=== PATIENT | male | born 1955 | race African-American/Black ===

== ENCOUNTER 2017-04-26 10:15 | Emergency (ER) | payer MEDICAID, OTHER ==
[~2017-04-26] VITALS: Ht 175.3 cm; Wt 98.4 kg
[~2017-04-26 10:15] MED LIST: ANUSOL-HC25 MG RECTAL; ATARAX25 MG ORAL; BENADRYL50 MG ORAL; CILOXAN 0.3% O1 DROP LEFT EYE; DOCUSATE SODIU100 MG PO; HYDROCORTISONE28 G5 TP; IBUPROFEN600 MG ORAL; IBUPROFEN800 MG ORAL; KEFLEX500 MG ORAL; LISINOPRIL10 MG ORAL; LISINOPRIL5 MG ORAL; NORCO 10/3251 EA ORAL; NORCO 5-325 TA1 EACH ORAL; NORVASC10 MG PO; SIMVASTATIN20 MG ORAL; SOMA350 MG PO; TAMSULOSIN HCL0.4 MG ORAL; TUMS500 MG PO; VICODIN ES 7.51 EACH ORAL; VITAMIN D1000 UNI1 ORAL
[2017-04-26 10:44] VITALS: BP 151/96
[2017-04-26] MEDS ORDERED: Ketorolac 30mg Inj IM ONE (11:00)
--- NOTE | 2017-04-26 11:53 | Diagnostic Imaging Report ---
Indication: Pain right ankle Comparison: None Findings: 3 views of the right ankle obtained. No acute fracture, malalignment, periostitis, or osteochondral defects are identified. Soft tissues are unremarkable. Mild marginal spurs are noted at the anterior aspect of the tibiotalar joint. There is a hint of calcification of the entire aponeurosis at the calcaneal tuberosity. Impression: No acute injury
[2017-04-26 12:25] VITALS: BP 151/96
--- NOTE | 2017-04-30 07:03 | Emergency Room Report ---
History of Present Illness General Chief Complaint: Pain Source: Patient Present Illness HPI 62-year-old male presents ED complaining of back pain and right ankle pain. Patient states that he has chronic history of back pain has had back surgery in the past. Patient is here complaining of back pain and right ankle pain. Notes pain for last several days. Patient is unsure if he injured his ankle in any way. Pain is a 10 out of 10, throbbing, nonradiating. Worse with walking but is able to bear weight. No other aggravating relieving factors. Denies any other associated symptom Allergies: Coded Allergies: No Known Allergies (Unverified , 11/03/15) Patient History Past Medical History: other - chronic back pain Past Surgical History: other - back surgery Pertinent Family History: none Social History: Denies: smoking, alcohol use, drug use Immunizations: UTD Reviewed Nursing Documentation: PMH: Agreed, PSxH: Agreed Nursing Documentation-PMH Past Medical History: No History, Except For Hx Hypertension: Yes - CHRONIC BACK PAIN, BACK SX 2006 Review of Systems All Other Systems: negative except mentioned in HPI Physical Exam Vital Signs Date Time Temp Pulse Resp B/P (MAP) Pulse Ox O2 Delivery O2 Flow Rate FiO2 04/26/17 10:36 97.9 66 20 151/96 98 Room Air Sp02 EP Interpretation: reviewed, normal General Appearance: no apparent distress, alert, GCS 15, non-toxic Head: normocephalic Eyes: bilateral eye normal inspection, bilateral eye PERRL ENT: normal ENT inspection Neck: normal inspection Respiratory: normal inspection Cardiovascular #1: normal inspection Gastrointestinal: normal inspection Rectal: deferred Genitourinary: no CVA tenderness, no vertebral tenderness Musculoskeletal: other - paraspinal lumbar tenderness, tender - R ankle Neurologic: alert, oriented x3, responsive, motor strength/tone normal, sensory intact, speech normal Psychiatric: normal inspection Skin: normal inspection Lymphatic: normal inspection Procedures Splinting Splinting : Consent: Verbal Pre-Made Type: TRES wrap - R ankle Pre-Proc Neuro Vasc Exam: normal Post-Proc Neuro Vasc Exam: normal Patient Tolerated: Well Complications: None Medical Decision Making Diagnostic Impression: Primary Impression: Ankle sprain Qualified Codes: S93.401A - Sprain of unspecified ligament of right ankle, initial encounter Additional Impression: Opioid dependence Qualified Codes: F11.20 - Opioid dependence, uncomplicated ER Course Hospital Course 62-year-old M presents to ED complaining of R ankle pain. c/o back pain Differential diagnoses include: Fracture, dislocation, sprain, contusion Clinical course Patient placed on stretcher. After initial history and physical, I ordered Xrays of R ankle Xrays prelim read shows no acute fracture/dislocation. placed in tres wrap, given crutches i reviewed CURES; patient recieves extensive narcotic prescriptions on a monthly basis. patient had 90 pills filled a few days ago. Patient acknowledges receiving his medications. I explained to patient that I cannot provide him with any medication stronger or additional medication at this time. Patient displays understanding Diagnosis - ankle sprain, opioid dependence Stable and discharged to home. apply ice, keep elevated. weight bear as tolerated. Followup with PMD. Return to ED if symptoms recur or worsen Other X-Ray Diagnostic Results Other X-Ray Diagnostic Results : X-Ray ordered: R ankle # of Views/Limited Vs Complete: 3 View Indication: Pain EP Interpretation: Yes Interpretation: no dislocation, no soft tissue swelling, no fractures Impression: No acute disease Interpreting ER Provider: Electronically signed by Amari Huston MD Last Vital Signs Date Time Temp Pulse Resp B/P (MAP) Pulse Ox O2 Delivery O2 Flow Rate FiO2 04/26/17 12:25 97.9 20 151/96 98 Room Air 04/26/17 10:36 66 Status: improved Disposition: HOME, SELF-CARE Condition: Stable Patient Instructions: Ankle Sprain, [id number] AMARI HUSTON M.D. Apr 30, 2017 07:03
== END 2017-04-26 12:27 | disposition home or self-care (01) ==
LOC: EMR 10:53
DX: S93.401A Sprain of unspecified ligament of right ankle, initial encounter (principal); F11.20 Opioid dependence, uncomplicated; M54.9 Dorsalgia, unspecified; X58.XXXA Exposure to other specified factors, initial encounter; Y93.9 Activity, unspecified; Y92.9 Unspecified place or not applicable; I10 Essential (primary) hypertension
CPT/HCPCS: 29540; 73610; 96372; 99283; J1885

== ENCOUNTER 2017-06-01 08:17 | Emergency (ER) | payer MEDICAID ==
[~2017-06-01] VITALS: Ht 175.3 cm; Wt 96.2 kg
[2017-06-01 08:25] VITALS: BP 158/92
[2017-06-01] MEDS ORDERED: Ketorolac 60mg Inj IM ONE (09:00)
[2017-06-01] MEDS ORDERED: Methocarbamol 750mg tab ORAL ONE (09:00)
--- NOTE | 2017-06-01 09:16 | Emergency Room Report ---
History of Present Illness General Chief Complaint: Pain Source: Patient Present Illness HPI Patient present with complaints of exacerbation and flareup of his low back pain Patient reports radiation towards the buttock area in the lower leg mainly on the right side however some also on the left side Denies any acute fall or injury patient reports spraining his right ankle about one month ago Denies any chest pressures of breath denies any saddle paresthesia Patient reports increased pain compared to previous 01/09 Denies any difficulty using the restroom Allergies: Coded Allergies: No Known Allergies (Unverified , 11/03/15) Patient History Past Medical History: see triage record Pertinent Family History: none Reviewed Nursing Documentation: PMH: Agreed, PSxH: Agreed Nursing Documentation-PMH Past Medical History: No History, Except For Hx Hypertension: Yes - CHRONIC BACK PAIN, BACK SX 2005 Hx Asthma: No Hx COPD: No Hx Diabetes: No Hx Cancer: No Hx Gastrointestinal Problems: No Hx Dialysis: No History Of Psychiatric Problem: No Hx Neurological Problems: Yes - HYDROCELE Hx Cerebrovascular Accident: No Hx Seizures: No Review of Systems All Other Systems: negative except mentioned in HPI Physical Exam Vital Signs Date Time Temp Pulse Resp B/P (MAP) Pulse Ox O2 Delivery O2 Flow Rate FiO2 06/01/17 08:21 97.2 62 18 158/92 99 Room Air Sp02 EP Interpretation: reviewed, normal General Appearance: well appearing, no apparent distress Head: normocephalic, atraumatic Eyes: bilateral eye PERRL, bilateral eye EOMI ENT: hearing grossly normal, normal pharynx, TMs + canals normal, uvula midline Neck: full range of motion, supple, no meningismus, no bony tend Respiratory: lungs clear, normal breath sounds, no rhonchi, no respiratory distress, no retraction, no accessory muscle use Cardiovascular #1: normal peripheral pulses, regular rate, rhythm, no edema, no gallop, no JVD, no murmur Gastrointestinal: normal bowel sounds, non tender, soft, no mass, no organomegaly, non-distended, no guarding, no hernia, no pulsatile mass, no rebound Genitourinary: no CVA tenderness Musculoskeletal: other - Patient has a back brace in place, he is ambulating without any focal deficit he does however use a cane for assistance sensory is intact, , Neurologic: oriented x3, responsive, senior product manager III-XII nml as tested, sensory intact Psychiatric: mood/affect normal Skin: normal color, no rash, warm/dry, palpation normal Lymphatic: normal inspection, no adenopathy Medical Decision Making Diagnostic Impression: Primary Impression: back pain ER Course Patient presents with multiple paperwork showing previous denial of further intervention, now the patient has had positive response for lower back epidural injections and was given a referral in the next 6 days Patient has extensive previous workup He is essentially requesting assistance with a flareup of the discomfort Patient also requesting pain medication and muscle relaxants for home He was notified that he appears to be under appropriate management Patient had recent medications dispensed And secondary to the safe pain medicine prescribing campaign patient is encouraged to followup with primary pain management Last Vital Signs Date Time Temp Pulse Resp B/P (MAP) Pulse Ox O2 Delivery O2 Flow Rate FiO2 06/01/17 08:25 97.2 18 158/92 99 Room Air 06/01/17 08:21 62 Status: improved Disposition: HOME, SELF-CARE Condition: Improved Referrals: NOT CHOSEN IPA/MD,REFERRING (PCP) Patient Instructions: Back Pain, Adult Additional Instructions: Patient is provided with the discharge instructions notified to follow up with primary doctor in the next 2-3 days otherwise return to the er with any worsening symptoms. Please note that this report is being documented using [employer] technology. This can lead to erroneous entry secondary to incorrect interpretation by the dictating instrument. CARYN GUSTAFSON D.O. Jun 01, 2017 09:16
[2017-06-01 09:22] VITALS: BP 158/92
== END 2017-06-01 09:22 | disposition home or self-care (01) ==
LOC: EMR 08:49
DX: I10 Essential (primary) hypertension (principal); G89.29 Other chronic pain; M54.9 Dorsalgia, unspecified; Z86.69 Personal history of other diseases of the nervous system and sense organs; N43.3 Hydrocele, unspecified
CPT/HCPCS: 96372; 99284

== ENCOUNTER 2017-10-29 10:37 | Emergency (ER) | payer MEDICAID ==
[~2017-10-29] VITALS: Ht 175.3 cm; Wt 96.2 kg
[2017-10-29 10:50] VITALS: BP 160/92
[2017-10-29] MEDS ORDERED: NASAL SPRAY SIN30 ML NS (11:05)
[2017-10-29] MEDS ORDERED: TESSALON PERLE100 MG ORAL (11:05)
[2017-10-29 11:18] VITALS: BP 148/90
--- NOTE | 2017-10-29 12:02 | Diagnostic Imaging Report ---
Indication: Cough Comparison: 11/13/2008 A single view chest radiograph was obtained. Findings: There is mild bronchial wall thickening noted. There is no consolidation or infiltrate. Cardiomediastinal appearance is within normal limits for age. Pulmonary vascularity is appropriate. The diaphragmatic contour is smooth and costophrenic angles are sharp. No pleural effusions are identified. The bones are unremarkable. Impression: Suspect bronchitis.
--- NOTE | 2017-10-29 12:22 | Emergency Room Report ---
History of Present Illness General Chief Complaint: Upper Respiratory Illness Source: Patient Present Illness HPI 62-year-old male, cough, runny nose for 5 days. Cough is productive with clear phlegm. Pt still eating/drinking well. +sick contacts. No recent travel. No SOB , cp, abdominal pain, n/v/d. Allergies: Coded Allergies: No Known Allergies (Unverified , 11/03/15) Patient History Past Medical History: see triage record Past Surgical History: none Pertinent Family History: none Reviewed Nursing Documentation: PMH: Agreed, PSxH: Agreed Nursing Documentation-PMH Hx Hypertension: Yes - CHRONIC BACK PAIN, BACK SX 2005 Hx Asthma: No Hx COPD: No Hx Diabetes: No Hx Cancer: No Hx Gastrointestinal Problems: No Hx Dialysis: No Hx Neurological Problems: Yes - HYDROCELE Hx Cerebrovascular Accident: No Hx Seizures: No Review of Systems All Other Systems: negative except mentioned in HPI Physical Exam Vital Signs Date Time Temp Pulse Resp B/P (MAP) Pulse Ox O2 Delivery O2 Flow Rate FiO2 10/29/17 10:44 98.5 69 17 160/92 99 Room Air 98.4 Sp02 EP Interpretation: reviewed, normal General Appearance: normal inspection, well appearing, no apparent distress, alert, GCS 15, non-toxic Head: normocephalic, atraumatic Eyes: bilateral eye normal inspection, bilateral eye PERRL, bilateral eye EOMI ENT: normal ENT inspection, normal pharynx, normal voice, moist mucus membranes Neck: normal inspection, full range of motion, supple Respiratory: normal inspection, lungs clear, normal breath sounds, no respiratory distress, no retraction, no wheezing, speaking full sentences, chest symmetrical Cardiovascular #1: normal inspection, regular rate, rhythm, no edema, normal capillary refill Cardiovascular #2: 2+ radial (R), 2+ radial (L) Gastrointestinal: normal inspection, non tender, soft, non-distended, no guarding Genitourinary: no CVA tenderness Musculoskeletal: normal inspection, back normal, normal range of motion, non- tender Neurologic: normal inspection, alert, oriented x3, responsive, motor strength/ tone normal, sensory intact, normal gait, speech normal Psychiatric: normal inspection, judgement/insight normal, memory normal Skin: normal inspection, normal color, no rash, warm/dry, well hydrated, normal turgor Medical Decision Making Diagnostic Impression: Primary Impression: Upper respiratory infection ER Course 62-year-old male, runny nose, cough Appears non- toxic, well hydrated, tolerating PO DDX: Viral URI / pneumonia Plan: Chest x-ray ER course: Pt stable in ED, remains nontoxic appearing, no sob. Tolerating PO Disposition: Patient discharged to home with Tessalon Perlbilly and nasal spray Patient instructed to follow up with PMD in 1 week. Also instructed to take motrin/tylenol at home. Very strict return precautions discussed with patient such as intractable fever and chills, unable to eat or drink, severe chest pain or shortness of breath. Patient verbalized understanding and agrees with plan. Please note that this Emergency Department Report was dictated using Thwaprpaper wrapping machine operator technology software, occasionally this can lead to erroneous entry secondary to interpretation by the dictation equipment Chest X-ray CXR: Ordered: Yes 1 view Indication: Cough EP interpretation: Yes Interpretation: No consolidation, no effusion, no PTX, no acute cardiopulmonary disease Impression: No acute disease Electronically signed by Paula Ritchie MD Last Vital Signs Date Time Temp Pulse Resp B/P (MAP) Pulse Ox O2 Delivery O2 Flow Rate FiO2 10/29/17 11:18 98.4 97 17 148/90 99 Room Air 98.4 Disposition: HOME, SELF-CARE Condition: Improved Scripts Benzonatate* (MANISH RODGERS*) 100 Mg Capsule 100 MG ORAL THREE TIMES A DAY for 7 Days, #21 PERLE Prov: Paula Ritchie M.D. 10/29/17 Oxymetazoline Hcl (NASAL SPRAY SINUS) 30 Ml Calcium 30 ML NS BID, #1 SPRAY Prov: Paula Ritchie M.D. 10/29/17 Referrals: [facility],REFERRING (PCP) Patient Instructions: Upper Respiratory Infection, Adult Paula Ritchie M.D. Oct 29, 2017 12:22
== END 2017-10-29 11:21 | disposition home or self-care (01) ==
LOC: EMR 11:00
DX: J06.9 Acute upper respiratory infection, unspecified (principal); G89.29 Other chronic pain; M54.9 Dorsalgia, unspecified
CPT/HCPCS: 71045; 99284

== ENCOUNTER 2017-11-19 19:25 | Emergency (ER) | payer MEDICAID ==
[~2017-11-19] VITALS: Ht 175.3 cm; Wt 96.2 kg
[~2017-11-19 19:25] MED LIST changes: +NASAL SPRAY SIN30 ML NS; +TESSALON PERLE100 MG ORAL
[2017-11-19 20:00] VITALS: BP 123/75
--- NOTE | 2017-11-19 20:01 | Emergency Room Report ---
History of Present Illness General Chief Complaint: Upper Respiratory Illness Present Illness HPI 62-year-old male presents to the emergency department complaining of continued cough, increased mucus 3 weeks. Patient was seen here and diagnosed with URI and was given Tessalon Perles patient states he has had no relief. Patient does admit to being a smoker. He denies fevers or chills. Denies swelling of the lower extremities or orthopnea. Denies sore throat, ear pain, high fevers, lethargy, neck pain/stiffness, irritability, photophobia dehydration, N/V/D. Denies Cp, Palpitations, LOC, AMS, seizures, paresthesias, or changes in Hearing or vision, no Sudden severe CHOWDHURY. Pt. reports missing a mandatory class yesterday due to his symptoms and is requesting a note. Allergies: Coded Allergies: No Known Allergies (Unverified , 11/03/15) Patient History Past Medical History: see triage record Past Surgical History: none Pertinent Family History: none Social History: Reports: smoking Reviewed Nursing Documentation: PMH: Agreed, PSxH: Agreed Nursing Documentation-PMH Hx Hypertension: Yes - CHRONIC BACK PAIN, BACK SX 2006 Hx Asthma: No Hx COPD: No Hx Diabetes: No Hx Cancer: No Hx Gastrointestinal Problems: No Hx Dialysis: No Hx Neurological Problems: Yes - HYDROCELE Hx Cerebrovascular Accident: No Hx Seizures: No Review of Systems All Other Systems: negative except mentioned in HPI Physical Exam Vital Signs Date Time Temp Pulse Resp B/P (MAP) Pulse Ox O2 Delivery O2 Flow Rate FiO2 11/19/ 19:32 98.1 70 18 123/75 96 Room Air 98.1 Sp02 EP Interpretation: reviewed, normal General Appearance: no apparent distress, alert, GCS 15, non-toxic Head: normocephalic, atraumatic ENT: hearing grossly normal, normal voice Neck: full range of motion Respiratory: chest non-tender, lungs clear, normal breath sounds, no rhonchi, no respiratory distress, no retraction, no accessory muscle use, no wheezing, speaking full sentences Cardiovascular #1: regular rate, rhythm, no edema, normal capillary refill Musculoskeletal: back normal, gait/station normal, normal range of motion, non- tender Neurologic: alert, oriented x3, responsive, motor strength/tone normal, sensory intact, normal gait, speech normal, grossly normal Psychiatric: judgement/insight normal Skin: normal color, no rash, warm/dry, well hydrated Lymphatic: no adenopathy Medical Decision Making PA Attestation Dr. Carey is my supervising Physician whom patient management has been discussed with. Diagnostic Impression: Primary Impression: Upper respiratory infection Qualified Codes: J06.9 - Acute upper respiratory infection, unspecified ER Course 62-year-old male presents to the emergency department complaining of continued cough, increased mucus 3 weeks. Patient was seen here and diagnosed with URI and was given Tessalon Perles patient states he has had no relief. Patient does admit to being a smoker. He denies fevers or chills. Denies swelling of the lower extremities or orthopnea. Denies sore throat, ear pain, high fevers, lethargy, neck pain/stiffness, irritability, photophobia dehydration, N/V/D. Denies Cp, Palpitations, LOC, AMS, seizures, paresthesias, or changes in Hearing or vision, no Sudden severe CHOWDHURY. Pt. reports missing a mandatory class yesterday due to his symptoms and is requesting a note. Ddx considered but are not limited to URI, pneumonia, PE, strep pharyngitis, meningitis. -Reviewed patient's most recent chest x-ray performed last week it was unremarkable. Vital signs: Pt. is afebrile, the remaining VS are WNL H&PE are most consistent with URI- no meningeal signs, oropharynx is not involved, no evidence of bacterial infection at this time. - Lungs CTA bilaterally no ronchi or rales. ORDERS: none required at this time, the diagnosis is clinical ED INTERVENTIONS: None required at this time. --PT. EDUCATION: Discussed antibiotic resistance with inappropriate prescribing of antibiotics for viral illnesses. Discussed signs and symptoms to indicate viral illness versus bacterial illness. DISCHARGE: At this time pt. is stable for d/c to home. Will provide printed patient care instructions, and any necessary prescriptions. Care plan and follow up instructions have been discussed with the patient prior to discharge. Last Vital Signs Date Time Temp Pulse Resp B/P (MAP) Pulse Ox O2 Delivery O2 Flow Rate FiO2 11/19/17 19:32 98.1 70 18 123/75 96 Room Air 98.1 Disposition: HOME, SELF-CARE Condition: Stable Scripts Guaifenesin (Guaifenesin) 1,200 Mg Tab.er.12h 1200 MG PO BID, #20 TAB Prov: Sadaf Boyce 11/19/17 Codeine/Promethazine Hcl* (PROMETHAZINE-CODEINE SYRUP*) 118 Ml Syrup 5 ML ORAL Q6H Y for For Cough, #120 ML 0 Refills Prov: Sadaf Boyce 11/19/17 Departure Forms: Return to Work Return to Work Date: Nov 20, 2017 Work Restrictions: None Other Restrictions: please excuse for abscence on 11/18/17. Return to Full Activity: Nov 20, 2017 Patient Instructions: Upper Respiratory Infection, Adult Additional Instructions: Take medications as directed. Follow up with a Primary Care Provider in 3-5 days, even if your symptoms have resolved. --Please review list of primary care clinics, if you do not already have a primary care provider Return sooner to ED if new symptoms occur, or current symptoms become worse. Do not drink alcohol, drive, or operate heavy machinery while taking Cough Syrup as this may cause drowsiness. - Please note that this Emergency Department Report was dictated using [email or web address] plant supervisor technology software, occasionally this can lead to erroneous entry secondary to interpretation by the dictation equipment. Sadaf Boyce Nov 19, 2017 20:01
[2017-11-19 20:30] VITALS: BP 123/75
[2017-11-19] MEDS ORDERED: GUAIFENESIN1200 MG PO (20:34)
[2017-11-19] MEDS ORDERED: PROMETHAZINE-C118 M1 ORAL (20:34)
== END 2017-11-19 20:30 | disposition home or self-care (01) ==
LOC: EMR 19:55
DX: J06.9 Acute upper respiratory infection, unspecified (principal); G89.29 Other chronic pain; M54.9 Dorsalgia, unspecified
CPT/HCPCS: 99284

== ENCOUNTER 2017-11-21 13:01 | Emergency (ER) | payer MEDICAID ==
[~2017-11-21] VITALS: Ht 175.3 cm; Wt 96.2 kg
[~2017-11-21 13:01] MED LIST changes: +GUAIFENESIN1200 MG PO; +PROMETHAZINE-C118 M1 ORAL
[2017-11-21] MEDS ORDERED: Ketorolac 60mg Inj IM ONE (13:30)
--- NOTE | 2017-11-21 13:30 | Emergency Room Report ---
History of Present Illness General Chief Complaint: Lower Extremity Injury Source: Medical Record Present Illness HPI 62 YO Male presents to the ED c/o 9 out of 10 in severity localized dorsal right ankle pain that progressed from initially a swelling without pain 5 days ago and now presents with erythema and increased temperature palpation since last night. Patient states that he is regularly prescribed pain medications for his back and they have not provided any relief for his foot pain. Pain exacerbated upon weight-bearing and walking. Denies trauma, fall, recent open wounds. Denies swelling in the calves or calf pain. Denies CP, Palpitations, LOC, AMS, dizziness, Changes in Vision, Sensation, paresthesias, or a sudden severe headache. Allergies: Coded Allergies: No Known Allergies (Unverified , 11/03/15) Patient History Past Medical History: see triage record Past Surgical History: none Pertinent Family History: none Immunizations: UTD Reviewed Nursing Documentation: PMH: Agreed; PSxH: Agreed Nursing Documentation-PMH Past Medical History: No History, Except For Hx Hypertension: Yes - CHRONIC BACK PAIN, BACK SX 2005 Hx Asthma: No Hx COPD: No Hx Diabetes: No Hx Cancer: No Hx Gastrointestinal Problems: No Hx Dialysis: No Hx Neurological Problems: Yes - HYDROCELE Hx Cerebrovascular Accident: No Hx Seizures: No Review of Systems All Other Systems: negative except mentioned in HPI Physical Exam Vital Signs Date Time Temp Pulse Resp B/P (MAP) Pulse Ox O2 Delivery O2 Flow Rate FiO2 11/21/17 13:09 98.0 65 16 123/63 95 Room Air 98.1 Sp02 EP Interpretation: reviewed, normal General Appearance: alert, GCS 15, non-toxic, mild distress Head: normocephalic, atraumatic ENT: hearing grossly normal, normal voice Neck: full range of motion Respiratory: lungs clear, normal breath sounds, speaking full sentences Cardiovascular #1: regular rate, rhythm, no edema, normal capillary refill Musculoskeletal: back normal, gait/station normal, normal range of motion - with pain. , no calf tenderness, swelling - dorsal right ankle, tender - TTP to the dorsal right ankle/proximal foot, erythema and swelling noted. increased temperature to palpaion. Neurologic: alert, oriented x3, responsive, motor strength/tone normal, sensory intact, speech normal, grossly normal Psychiatric: judgement/insight normal Skin: no rash, warm/dry, well hydrated, other - dorsal right ankle/proximal foot-erythema and swelling noted. increased temperature to palpaion. Medical Decision Making PA Attestation Dr. Flores is my supervising Physician whom patient management has been discussed with. Diagnostic Impression: Primary Impression: Cellulitis Qualified Codes: L03.115 - Cellulitis of right lower limb ER Course 62 YO Male presents to the ED c/o 9 out of 10 in severity localized dorsal right ankle pain that progressed from initially a swelling without pain 5 days ago and now presents with erythema and increased temperature palpation since last night. Patient states that he is regularly prescribed pain medications for his back and they have not provided any relief for his foot pain. Pain exacerbated upon weight-bearing and walking. Denies trauma, fall, recent open wounds. Denies swelling in the calves or calf pain. Denies CP, Palpitations, LOC, AMS, dizziness, Changes in Vision, Sensation, paresthesias, or a sudden severe headache. Ddx considered but are not limited to Fracture, dislocation, contusion, Sprain/ Strain/Spasm, Cellulitis, gout/pseudogout just to name a few. Vital signs: are WNL, pt. is afebrile H&PE are most consistent with Cellulitis will do x-ray to r/o fractures. ORDERS: - X-ray Right ankle 3 views- only remarkable for ST swelling. ED INTERVENTIONS: - Toradol IM --Patient is provided with crutches and instructed on their use -Discussed with patient that he'll be treated as an outpatient with antibiotics and to monitor for signs of progression of the infection. Patient is to follow- up with his primary care provider in approximately 3-5 days. He is given strict ED return precautions DISCHARGE: At this time pt. is stable for d/c to home. Will provide printed patient care instructions, and any necessary prescriptions. Care plan and follow up instructions have been discussed with the patient prior to discharge. Other X-Ray Diagnostic Results Other X-Ray Diagnostic Results : # of Views/Limited Vs Complete: 3 View Indication: Pain EP Interpretation: Yes MOMO Xray: Interpretation reviewed, by supervising MD, and agrees with findings. Interpretation: no dislocation, no fractures, other - soft tissue swelling. Impression: Other - abnormal Electronically Signed by: Sadaf Boyce PA-C Last Vital Signs Date Time Temp Pulse Resp B/P (MAP) Pulse Ox O2 Delivery O2 Flow Rate FiO2 11/21/17 13:09 98.0 65 16 123/63 95 Room Air 98.1 Disposition: HOME, SELF-CARE Condition: Stable Scripts Clindamycin Hcl (CLINDAMYCIN HCL) 300 Mg Capsule 300 MG ORAL FOUR TIMES A DAY for 7 Days, #27 CAP Prov: Sadaf Boyce 11/21/17 Patient Instructions: Cellulitis, [id number] Additional Instructions: Take medications as directed along with any previously prescribed medications. Follow up with a Primary Care Provider in 3-5 days, even if your symptoms have resolved. --Please review list of primary care clinics, if you do not already have a primary care provider Return sooner to ED if new symptoms occur, or current symptoms become worse. - Please note that this Emergency Department Report was dictated using Grillin In The Cityplaster mold maker technology software, occasionally this can lead to erroneous entry secondary to interpretation by the dictation equipment. Sadaf Boyce Nov 21, 2017 13:30
[2017-11-21] MEDS ORDERED: CLINDAMYCIN HC300 MG ORAL (13:53)
[2017-11-21 14:28] VITALS: BP 135/64
--- NOTE | 2017-11-21 14:44 | Diagnostic Imaging Report ---
Indication: Ankle pain Technique: 3 views of the right ankle Comparison: none Findings: No acute fractures. No dislocations. The joint spaces are preserved Impression: Negative
== END 2017-11-21 14:28 | disposition home or self-care (01) ==
LOC: EMR 14:10
DX: L03.115 Cellulitis of right lower limb (principal); M54.9 Dorsalgia, unspecified; G89.29 Other chronic pain
CPT/HCPCS: 96372; 99283

== ENCOUNTER 2018-04-07 18:17 | Emergency (ER) | payer MEDICAID ==
[~2018-04-07] VITALS: Ht 175.3 cm; Wt 93.9 kg
[~2018-04-07 18:17] MED LIST changes: +CLINDAMYCIN HC300 MG ORAL
--- NOTE | 2018-04-07 19:22 | Emergency Room Report ---
History of Present Illness General Chief Complaint: Lower Extremity Injury Source: Patient Present Illness HPI 63-year-old male presents to the emergency department complaining of 10 out of 10 in severity pain to the dorsal lateral aspect of the right foot 4 days. Patient reports that he twisted his ankle on some stairs 4 days ago. Patient denies hitting his head or loss of consciousness. Patient reports pain is exacerbated upon weight-bearing or attempts to walk. Patient states he also has noted some swelling to the right ankle. Patient denies previous injury of this extremity. Denies numbness tingling or loss of sensation or gross motor movements of the extremities, incontinence of bowel or bladder. Denies CP, Palpitations, LOC, AMS, dizziness, Changes in Vision, weakness or a sudden severe headache. Allergies: Coded Allergies: No Known Allergies (Unverified , 11/03/15) Patient History Past Medical History: see triage record Past Surgical History: none Pertinent Family History: none Reviewed Nursing Documentation: PMH: Agreed; PSxH: Agreed Nursing Documentation-PMH Past Medical History: No History, Except For Hx Hypertension: Yes - CHRONIC BACK PAIN, BACK SX 2005 Hx Asthma: No Hx COPD: No Hx Diabetes: No Hx Cancer: No Hx Gastrointestinal Problems: No Hx Dialysis: No Hx Neurological Problems: Yes - HYDROCELE Hx Cerebrovascular Accident: No Hx Seizures: No Review of Systems All Other Systems: negative except mentioned in HPI Physical Exam Vital Signs Date Time Temp Pulse Resp B/P (MAP) Pulse Ox O2 Delivery O2 Flow Rate FiO2 04/07/18 18:26 97.6 80 16 127/78 96 Room Air 97.5 Sp02 EP Interpretation: reviewed, normal General Appearance: no apparent distress, alert, GCS 15, non-toxic Head: normocephalic, atraumatic ENT: hearing grossly normal, normal voice Neck: full range of motion Respiratory: lungs clear, normal breath sounds, speaking full sentences Cardiovascular #1: regular rate, rhythm, no edema, normal capillary refill Musculoskeletal: back normal, normal range of motion, swelling - Dorsum of the right ankle/foot and lateral aspect of the right ankle. , tender Neurologic: alert, oriented x3, responsive, motor strength/tone normal, sensory intact, speech normal, grossly normal Psychiatric: judgement/insight normal Skin: normal color, no rash, warm/dry, well hydrated Medical Decision Making PA Attestation Dr. Carey is my supervising Physician whom patient management has been discussed with. Diagnostic Impression: Primary Impression: Foot fracture, right Qualified Codes: S92.901A - Unspecified fracture of right foot, initial encounter for closed fracture Additional Impressions: Ankle sprain Qualified Codes: S93.491A - Sprain of other ligament of right ankle, initial encounter Onycholysis of toenail ER Course 63-year-old male presents to the emergency department complaining of 10 out of 10 in severity pain to the dorsal lateral aspect of the right foot 4 days. Patient reports that he twisted his ankle on some stairs 4 days ago. Patient denies hitting his head or loss of consciousness. Patient reports pain is exacerbated upon weight-bearing or attempts to walk. Patient states he also has noted some swelling to the right ankle. Patient denies previous injury of this extremity. Denies numbness tingling or loss of sensation or gross motor movements of the extremities, incontinence of bowel or bladder. Denies CP, Palpitations, LOC, AMS, dizziness, Changes in Vision, weakness or a sudden severe headache. Ddx considered but are not limited to Fracture, dislocation, contusion, Sprain/ Strain/Spasm. Vital signs: are WNL, pt. is afebrile H&PE are most consistent with musculoskeletal injury will perform imaging to r/ o fractures/dislocations. ORDERS: - X-ray Right ankle 3 views - POSITIVE for avulsion fx of the right foot. Negative for Dislocation, or significant soft tissue injury, per preliminary read in ED, and signed by MOMO Boyce, my supervising physician has reviewed, and agrees with my interpretation. ED INTERVENTIONS: - [place] PO - Short leg Posterior Splint applied by test engineering technician. Pt. remains neurovascularly intact. DISCHARGE: At this time pt. is stable for d/c to home. Will provide printed patient care instructions, and any necessary prescriptions. Care plan and follow up instructions have been discussed with the patient prior to discharge. Other X-Ray Diagnostic Results Other X-Ray Diagnostic Results : X-Ray ordered: Right Ankle # of Views/Limited Vs Complete: 3 View Indication: Pain EP Interpretation: Yes PA Xray: by supervising MD, and agrees with findings. Interpretation: no dislocation, other - ST Swelling, Positive for avulsion fx. Impression: No acute disease Electronically Signed by: Sadaf Boyce PA-C Last Vital Signs Date Time Temp Pulse Resp B/P (MAP) Pulse Ox O2 Delivery O2 Flow Rate FiO2 04/07/18 18:26 97.6 80 16 127/78 96 Room Air 97.5 Disposition: HOME, SELF-CARE Condition: Stable Scripts Ibuprofen* (MOTRIN*) 600 Mg Tablet 600 MG ORAL THREE TIMES A DAY, #30 TAB 0 Refills Prov: Sadaf Boyce 04/07/18 Hydrocodone Bit/Acetaminophen 5-325* (NORCO 5-325*) 1 Each Tablet 1 TAB ORAL Q6H PRN for For Pain, #10 TAB 0 Refills Prov: Sadaf Boyce 04/07/18 Referrals: [facility],REFERRING (PCP) Patient Instructions: Ankle Sprain, Avulsion Fracture of the Foot Additional Instructions: Take medications as directed. Follow up with an [facility]ER in 3-5 days, even if your symptoms have resolved. Recommend Foundation Assistant Follow up as well for oncolysis of the right great toenail. If symptoms persist MRI may be required at the discretion of your PCP or Ortho Specialist. --Please review list of primary care clinics, if you do not already have a primary care provider who can give you an Orthopedic Referral. Return sooner to ED if new symptoms occur, or current symptoms become worse. - Please note that this Emergency Department Report was dictated using Stayfulgeophysical prospector technology software, occasionally this can lead to erroneous entry secondary to interpretation by the dictation equipment. Sadaf Boyce Apr 07, 2018 19:22
[2018-04-07] MEDS ORDERED: Norco 5mg/325mg tab ORAL ONE (19:30)
[2018-04-07] MEDS ORDERED: IBUPROFEN600 MG ORAL (20:24)
[2018-04-07] MEDS ORDERED: NORCO 5-325 TA1 EACH ORAL (20:24)
[2018-04-07 20:38] VITALS: BP 125/71
--- NOTE | 2018-04-08 09:08 | Diagnostic Imaging Report ---
Indication: Pain Technique: XRAY Ankle Compl Min 3v R Comparison: 11/21/2017 Findings: There is no evidence of acute fracture. Ankle mortise is intact on these nonstress views. There is degenerative change of the tibiotalar joint with some subchondral sclerosis on the tibia and subchondral cystic change in the talus. There are small anterior tibiotalar osteophytes. These findings were noted on the prior exam. There is a small plantar calcaneal enthesophyte. No radiopaque foreign body identified. 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 The possibility of an ankle impingement syndrome not excluded. Recommend nonemergent MRI of the ankle for further evaluation. Small plantar calcaneal enthesophyte.
== END 2018-04-07 21:34 | disposition home or self-care (01) ==
LOC: EMR 18:44
DX: S92.901A Unspecified fracture of right foot, initial encounter for closed fracture (principal); S93.491A Sprain of other ligament of right ankle, initial encounter; L60.1 Onycholysis; X50.1XXA Overexertion from prolonged static or awkward postures, initial encounter; Y93.89 Activity, other specified; Y92.9 Unspecified place or not applicable; I10 Essential (primary) hypertension
CPT/HCPCS: 99284

== ENCOUNTER 2018-04-13 14:36 | Emergency (ER) | payer MEDICAID ==
[~2018-04-13] VITALS: Ht 177.8 cm; Wt 96.2 kg
[2018-04-13 14:48] VITALS: BP 134/78
--- NOTE | 2018-04-13 15:23 | Emergency Room Report ---
History of Present Illness General Chief Complaint: Pain Source: Patient, Medical Record Present Illness HPI 63-year-old male patient presents ER requesting splint change on right foot. Reports was previously seen in [place] [facility] [place] and diagnosed with a fracture. Reviewed previous chart. States followed up with primary care provider and got referral to Ortho, states awaiting appointment date. Denies recent injury since previous visit. Reports taking ibuprofen for pain. Denies other acute symptoms. Reports splint is coming apart and was told to return to the ER to have it redone or changed if this happened. Allergies: Coded Allergies: No Known Allergies (Unverified , 11/03/15) Patient History Past Medical History: see triage record Reviewed Nursing Documentation: PMH: Agreed; PSxH: Agreed Nursing Documentation-PMH Past Medical History: No History, Except For Hx Hypertension: Yes - CHRONIC BACK PAIN, BACK SX 2005 Hx Asthma: No Hx COPD: No Hx Diabetes: No Hx Cancer: No Hx Gastrointestinal Problems: No Hx Dialysis: No Hx Neurological Problems: Yes - HYDROCELE Hx Cerebrovascular Accident: No Hx Seizures: No Review of Systems All Other Systems: negative except mentioned in HPI Physical Exam Vital Signs Date Time Temp Pulse Resp B/P (MAP) Pulse Ox O2 Delivery O2 Flow Rate FiO2 04/13/18 14:48 98.1 66 18 134/78 95 Room Air 98.1 Sp02 EP Interpretation: reviewed, normal General Appearance: well appearing, no apparent distress, alert, GCS 15, non- toxic Head: normocephalic, atraumatic Eyes: bilateral eye normal inspection, bilateral eye PERRL ENT: hearing grossly normal, normal pharynx, no angioedema, normal voice, uvula midline, moist mucus membranes Neck: full range of motion Respiratory: lungs clear, normal breath sounds, no rhonchi, no respiratory distress, no accessory muscle use, no wheezing, speaking full sentences Cardiovascular #1: regular rate, rhythm, no edema Cardiovascular #2: 2+ dorsalis pedis (R), 2+ dorsalis pedis (L) Musculoskeletal: back normal, digits/nails normal, gait/station normal, normal range of motion, swelling - dorsum of the right ankle and foot, other - NVI, no ecchymosis, no open lesions; yellow black discolored big toe nail, tender - dorsum of right midfoot Neurologic: alert, oriented x3, responsive, motor strength/tone normal, sensory intact Psychiatric: mood/affect normal Skin: no rash Lymphatic: no adenopathy Medical Decision Making PA Attestation Dr. Gutierres is my supervising Physician whom patient management has been discussed with. Diagnostic Impression: Primary Impression: Encounter for other orthopedic aftercare ER Course Pt. presents to the ED requesting splint change. Ddx considered but are not limited to sprain, strain, fracture, dressing change. Vital signs: are WNL, pt. is afebrile ER COURSE: posterior leg splint appears dirty, coming off, will replace. provided with pain medication. Discuss further pain medication with primary care provider. Discuss referral to pain management. review previous patient chart, no fracture seen. Discuss results with the patient. Provided patient with copy of results. Instructed patient to followup with PCP and discuss results of report with patient, discuss need for further treatment and referral. Patient states that they would like to be placed back in the splint for support until they're able to follow up with lead sustainability specialist. Follow-up Ortho. Follow-up with podiatry. continue taking ibuprofen for pain symptoms. Provided patient with information for french binder, follow-up with podiatry. Discuss onychomycosis and treatment options. Discuss with french binder. DISCHARGE: At this time pt is stable for d/c to home. Patient is resting comfortably, in no acute distress, nontoxic appearing, talking without difficulty. Patient to take medications as instructed Will provide with patient care instructions and any necessary prescriptions. Care plan and follow-up instructions provided. Patient instructed to follow-up with primary care provider in 3 - 5 days. Patient questions asked and answered. Patient reports understanding and agreement to treatment plan. ER precautions given. Patient instructed to return to ER immediately for any new or worsening of symptoms including but not limited to increasing SOB, persistent fever, chest pain, intractable vomiting. - Please note that this Emergency Department Report was dictated using rollAppmedical center director technology software, occasionally this can lead to erroneous entry secondary to interpretation by the dictation equipment. Last Vital Signs Date Time Temp Pulse Resp B/P (MAP) Pulse Ox O2 Delivery O2 Flow Rate FiO2 04/13/18 14:48 98.1 66 18 134/78 95 Room Air 98.1 Disposition: HOME, SELF-CARE Condition: Stable Patient Instructions: Cast or Splint Care, [id number] Additional Instructions: Patient instructed to follow up with primary care provider and discuss further referral to orthopedics. Followup with french binder, call to schedule appointment. Advised patient on use of Lamisil and Lotrimin. Patient instructed on RICE method: rest, ice, compression, elevation. Patient instructed to WBAT. Take medications as directed. Patient questions asked and answered. ER precautions given, patient instructed to return to ER immediately for any new or worsening of symptoms. Berry Juarez Apr 13, 2018 15:23
[2018-04-13 15:47] VITALS: BP 134/78
== END 2018-04-13 16:31 | disposition home or self-care (01) ==
LOC: EMR 15:49
DX: Z47.89 Encounter for other orthopedic aftercare (principal); M79.671 Pain in right foot
CPT/HCPCS: 99283

== ENCOUNTER → 2018-04-15 | Emergency (ER) | payer MEDICAID ==
[~2018-04-15] VITALS: Ht 177.8 cm; Wt 96.2 kg
--- NOTE | 2018-04-15 12:31 | Emergency Room Report ---
History of Present Illness General Chief Complaint: Cast Check Source: Patient Present Illness HPI 63-year-old male patient presents ER requesting splint change on his right ankle. patient was previously seen at [facility] ER 2 days ago and again one week ago at initial injury onset. Seen 2 days ago for a cast check due to being dirty. reports cast currently is "too tight" and would like it to be changed again. denies other acute symptoms. Reports ambulating and taking medications as previously instructed. Allergies: Coded Allergies: No Known Allergies (Unverified , 11/03/15) Patient History Past Medical History: see triage record Reviewed Nursing Documentation: PMH: Agreed; PSxH: Agreed Nursing Documentation-PMH Past Medical History: No History, Except For Hx Hypertension: Yes - CHRONIC BACK PAIN, BACK SX 2005 Hx Asthma: No Hx COPD: No Hx Diabetes: No Hx Cancer: No Hx Gastrointestinal Problems: No Hx Dialysis: No Hx Neurological Problems: Yes - HYDROCELE Hx Cerebrovascular Accident: No Hx Seizures: No Review of Systems All Other Systems: negative except mentioned in HPI Physical Exam Vital Signs Date Time Temp Pulse Resp B/P (MAP) Pulse Ox O2 Delivery O2 Flow Rate FiO2 04/15/18 12:09 98.0 68 20 124/72 97 Room Air 98.1 Sp02 EP Interpretation: reviewed, normal General Appearance: well appearing, no apparent distress, alert, GCS 15, non- toxic Head: normocephalic, atraumatic Eyes: bilateral eye normal inspection, bilateral eye PERRL ENT: hearing grossly normal, normal pharynx, no angioedema, normal voice, uvula midline, moist mucus membranes Neck: full range of motion Respiratory: lungs clear, normal breath sounds, no rhonchi, no respiratory distress, no accessory muscle use, no wheezing, speaking full sentences Cardiovascular #1: regular rate, rhythm, no edema Cardiovascular #2: 2+ dorsalis pedis (R), 2+ dorsalis pedis (L) Musculoskeletal: back normal, digits/nails normal, gait/station normal, normal range of motion, non-tender, no calf tenderness, Viridiana's Sign negative, swelling - right foot and ankle, other - NVI, no ecchymosis, no open lesions; yellow black discolored big toe nail, tender - dorsum of right midfoot Neurologic: alert, oriented x3, responsive, motor strength/tone normal, sensory intact Skin: no rash Medical Decision Making PA Attestation Dr. Carey is my supervising Physician whom patient management has been discussed with. Diagnostic Impression: Primary Impression: Aftercare for cast or splint check or change ER Course Pt. presents to the ED requesting a splint change. multiple differentials considered. Vital signs: are WNL, pt. is afebrile ER COURSE: discuss x-ray results the patient again informed patient that foot is not fractured does not need splint. Advised patient to be placed into Ismael wrap and postop shoe. Patient agrees with treatment plan. redressed shoe, swelling still noted over ankle, no abrasions on skin. Neurovascularly intact following dressing as checked by me. follow-up with scheduled appointment. Take medications as previously instructed. Patient able to ambulate without difficulty, Ok for discharge to home. DISCHARGE: At this time pt is stable for d/c to home. Patient is resting comfortably, in no acute distress, nontoxic appearing, talking without difficulty. Patient to take medications as instructed Will provide with patient care instructions and any necessary prescriptions. Care plan and follow-up instructions provided. Patient instructed to follow-up with primary care provider in 3 - 5 days. Patient questions asked and answered. Patient reports understanding and agreement to treatment plan. ER precautions given. Patient instructed to return to ER immediately for any new or worsening of symptoms including but not limited to increasing SOB, persistent fever, chest pain, intractable vomiting. - Please note that this Emergency Department Report was dictated using Zaaskemployee wellness/fitness coordinator technology software, occasionally this can lead to erroneous entry secondary to interpretation by the dictation equipment. Last Vital Signs Date Time Temp Pulse Resp B/P (MAP) Pulse Ox O2 Delivery O2 Flow Rate FiO2 04/15/18 12:09 98.0 68 20 124/72 97 Room Air 98.1 Disposition: HOME, SELF-CARE Condition: Stable Patient Instructions: Cast or Splint Care Additional Instructions: Patient instructed to follow up with primary care provider and discuss further referral to orthopedics. Patient instructed on RICE method: rest, ice, compression, elevation. Patient instructed to be WBAT. Take medications as directed. Patient questions asked and answered. ER precautions given, patient instructed to return to ER immediately for any new or worsening of symptoms. Berry Juarez Apr 15, 2018 12:31
[2018-04-15 12:38] VITALS: BP 124/72
== END | disposition home or self-care (01) ==
LOC: EMR 12:33
DX: S99.911D Unspecified injury of right ankle, subsequent encounter (principal); G89.29 Other chronic pain; M54.9 Dorsalgia, unspecified
CPT/HCPCS: 99282

== ENCOUNTER → 2018-04-29 | Emergency (ER) | payer MEDICAID ==
[~2018-04-29] VITALS: Ht 175.3 cm; Wt 96.2 kg
[2018-04-29 07:36] VITALS: BP 109/66
--- NOTE | 2018-04-29 07:38 | Emergency Room Report ---
History of Present Illness General Chief Complaint: General Complaint Source: Patient Present Illness HPI Patient returns to emergency department requesting that a splint be reapplied. He was seen by the orthopedic doctor and told that he didn't need a splint at this time. He states he feels that his ankle is unstable and he has pain. He' s requesting another splint be applied. Reports pain 8/10 aching not radiating. The initial injury was on April 03. He presented 4 days later and the x-ray was read by the PA and ER physician as having an avulsion fracture in the foot. A splint was applied at that time. He really presented April 13 saying the splint had come apart. Another one was applied. He returned April 15 saying the splint was too tight. It was redone at that time. No other somatic complaints. Allergies: Coded Allergies: No Known Allergies (Unverified , 11/03/15) Patient History Past Medical History: see triage record Social History: Reports: smoking Social History Narrative missing anger management to visit ED today Reviewed Nursing Documentation: PMH: Agreed; PSxH: Agreed Nursing Documentation-PMH Hx Hypertension: Yes - CHRONIC BACK PAIN, BACK SX 2005 Hx Asthma: No Hx COPD: No Hx Diabetes: No Hx Cancer: No Hx Gastrointestinal Problems: No Hx Dialysis: No Hx Neurological Problems: Yes - HYDROCELE Hx Cerebrovascular Accident: No Hx Seizures: No Review of Systems Constitutional: Denies: fever ENT: Denies: throat pain Respiratory: Denies: shortness of breath Cardiovascular: Denies: chest pain Musculoskeletal: Reports: see HPI Skin: Denies: rash Neurological: Denies: numbness Physical Exam Vital Signs Date Time Temp Pulse Resp B/P (MAP) Pulse Ox O2 Delivery O2 Flow Rate FiO2 04/29/18 07:16 97.4 59 16 109/66 95 Room Air 97.3 Sp02 EP Interpretation: reviewed, normal General Appearance: well appearing, no apparent distress Head: normocephalic, atraumatic Eyes: bilateral eye normal inspection, bilateral eye PERRL ENT: hearing grossly normal, normal voice, moist mucus membranes Neck: full range of motion, supple Respiratory: normal breath sounds, no respiratory distress, speaking full sentences Cardiovascular #1: regular rate, rhythm Cardiovascular #2: 2+ radial (R), 2+ dorsalis pedis (R) Gastrointestinal: normal inspection Musculoskeletal: digits/nails normal, no calf tenderness, other - tenderness bilat maleoli, ligs with slight laxity. No pain 5th MT or mid foot Neurologic: alert, grossly normal Psychiatric: mood/affect normal Skin: no rash Medical Decision Making Diagnostic Impression: Primary Impression: Ankle pain Qualified Codes: M25.571 - Pain in right ankle and joints of right foot ER Course Patient with stated ankle instability. He is requesting a splint at this time. Exam has swelling in his ankle. There is some tenderness there. We will place an Aircast. There are no Aircasts. An Ismael wrap is attempted. He states that he is not going to work. A splint is applied. Xrays reviewed. Disparity between official reading. No acute fx identified by our radiologist. 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 The possibility of an ankle impingement syndrome not excluded. Recommend nonemergent MRI of the ankle for further evaluation. Small plantar calcaneal enthesophyte. He is asking for an excuse for his anger management class. Splint applied by [employer]. Position and tension excellent with improvement. Neurovasc checked by me and normal. Patient stable for outpatient observation and treatment. Other X-Ray Diagnostic Results Other X-Ray Diagnostic Results : X-Ray ordered: see above reading of ankle 04/07 Last Vital Signs Date Time Temp Pulse Resp B/P (MAP) Pulse Ox O2 Delivery O2 Flow Rate FiO2 04/29/18 08:50 59 18 120/73 100 Room Air 04/29/18 07:36 97.3 97.3 Status: improved Disposition: HOME, SELF-CARE Condition: Improved Referrals: NON PHYSICIAN (PCP) Scott Giraldo M.D. Apr 29, 2018 07:38
[2018-04-29 08:50] VITALS: BP 120/73
== END | disposition home or self-care (01) ==
LOC: EMR 07:24
DX: M25.571 Pain in right ankle and joints of right foot (principal); I10 Essential (primary) hypertension
CPT/HCPCS: 99283

== ENCOUNTER 2018-09-05 20:23 | Emergency (ER) | payer MEDICAID ==
[~2018-09-05] VITALS: Ht 175.3 cm; Wt 97.5 kg
[2018-09-05 20:40] VITALS: BP 103/61
[2018-09-05] MEDS ORDERED: IBUPROFEN600 MG ORAL (21:06)
--- NOTE | 2018-09-05 21:06 | Emergency Room Report ---
History of Present Illness General Chief Complaint: Back Pain-No Injury Source: Patient Present Illness HPI This is a 63-year-old male who has history of chronic pain. He presents with chief complaint of lower back pain. His is been out of his pain medication for last 2 weeks. Denies any fever chills denies any nausea vomiting. He had a nerve block done last week. Nothing made it better. The pain is localized the lower back. No radiation. Pain is 9 out of 10. No fever chills but no nausea no vomiting. No incontinence of bowel or urine. No paresthesia. Allergies: Coded Allergies: No Known Allergies (Unverified , 11/03/15) Patient History Past Medical History: see triage record, old chart reviewed Past Surgical History: other Pertinent Family History: none Social History: Denies: smoking Immunizations: other Reviewed Nursing Documentation: PMH: Agreed; PSxH: Agreed Nursing Documentation-PMH Past Medical History: No History, Except For Hx Hypertension: Yes - CHRONIC BACK PAIN, BACK SX 2006 Hx Asthma: No Hx COPD: No Hx Diabetes: No Hx Cancer: No Hx Gastrointestinal Problems: No Hx Dialysis: No Hx Neurological Problems: Yes - HYDROCELE Hx Cerebrovascular Accident: No Hx Seizures: No Review of Systems Eye: Denies: eye pain, blurred vision ENT: Denies: ear pain, nose congestion, throat swelling Respiratory: Denies: cough, shortness of breath Cardiovascular: Denies: chest pain, palpitations Gastrointestinal: Denies: abdominal pain, diarrhea, nausea, vomiting Musculoskeletal: Reports: back pain; Denies: joint pain Skin: Denies: rash Neurological: Denies: headache, numbness Endocrine: Denies: increased thirst, increased urine Hematologic/Lymphatic: Denies: easy bruising All Other Systems: negative except mentioned in HPI Physical Exam Vital Signs Date Time Temp Pulse Resp B/P (MAP) Pulse Ox O2 Delivery O2 Flow Rate FiO2 09/05/18 20:34 98.2 61 16 103/61 96 Room Air vitals normal Sp02 EP Interpretation: reviewed, normal General Appearance: well appearing, no apparent distress, alert Head: normocephalic, atraumatic Eyes: bilateral eye PERRL, bilateral eye EOMI ENT: hearing grossly normal, normal pharynx Neck: full range of motion, supple, no meningismus Respiratory: chest non-tender, lungs clear, normal breath sounds Cardiovascular #1: regular rate, rhythm, no murmur Gastrointestinal: normal bowel sounds, non tender, no mass, no organomegaly, no bruit, non-distended Musculoskeletal: back normal, gait/station normal, normal range of motion Psychiatric: mood/affect normal Skin: warm/dry Medical Decision Making Diagnostic Impression: Primary Impression: Back pain Qualified Codes: M54.5 - Low back pain Additional Impression: Opioid dependence Qualified Codes: F11.20 - Opioid dependence, uncomplicated ER Course Patient here for exacerbation of chronic lower back pain. No evidence of cauda equina syndrome, spinal epidural abscess or neoplastic process. We'll discharge home. Last Vital Signs Date Time Temp Pulse Resp B/P (MAP) Pulse Ox O2 Delivery O2 Flow Rate FiO2 09/05/18 20:34 98.2 61 16 103/61 96 Room Air Status: improved Disposition: HOME, SELF-CARE Condition: Stable Scripts Ibuprofen* (MOTRIN*) 600 Mg Tablet 600 MG ORAL THREE TIMES A DAY, #30 TAB 0 Refills Prov: Kaleb Riddle MD 09/05/18 Patient Instructions: Back Pain, Adult Additional Instructions: Follow-up with your doctor in 7 days. Return if symptom worsen. Kaleb Riddle MD Sep 05, 2018 21:06
[2018-09-05] MEDS: Ketorolac 60mg Inj IM ONE (21:09)
[2018-09-05 21:25] VITALS: BP 103/61
== END 2018-09-05 21:15 | disposition home or self-care (01) ==
LOC: EMR 21:00
DX: M54.5 Low back pain (principal); F11.20 Opioid dependence, uncomplicated
CPT/HCPCS: 96372; 99283

== ENCOUNTER 2018-12-17 12:07 | Emergency (ER) | payer MEDICAID ==
[~2018-12-17] VITALS: Ht 175.3 cm; Wt 96.2 kg
--- NOTE | 2018-12-17 12:41 | NUR ---
ED Nurse Note: Pt came into the ER w/ complaints of right hand pain x 3 days. Swelling and redness noted in the area. Pt is complaining of 8/10 pain in the area. Non radiating. Pt denies trauma. Pt is A + O x4. Ambulatory. Skin warm to touch.
[2018-12-17 12:44] VITALS: BP 125/65
--- NOTE | 2018-12-17 13:03 | Emergency Room Report ---
History of Present Illness General Chief Complaint: Pain Source: Patient Present Illness HPI 63-year-old male presents to the emergency department complaining of 9 out of 10 in severity pain to the right hand specifically along the right middle finger on the dorsal and volar aspect 2 days. Patient also reports subjective swelling he states that his pain is exacerbated upon attempts to make a fist denies trauma or fall he reports that began having his symptoms the day after beginning meloxicam. Patient thinks that this may be a side effect of his medication because he read that swelling is a possible side effect. Denies erythema, warmth, open wounds or rashes. He states that he is right-hand dominant. No relieving factors at this time. Pt. denies fevers, chills or swollen tender lymph nodes. Denies lesions/rashes elsewhere on the body. Denies new medications or body washes or creams. Denies swelling of the lips, tongue , throat or airway. Denies wheezing, or shortness of breath. Denies recent travel , recent illness or ill contacts. denies blisters, oral lesions, or sloughing of the skin Allergies: Coded Allergies: No Known Allergies (Unverified , 11/03/15) Patient History Past Medical History: see triage record Past Surgical History: none Pertinent Family History: none Reviewed Nursing Documentation: PMH: Agreed; PSxH: Agreed Nursing Documentation-PMH Past Medical History: No History, Except For Hx Hypertension: Yes - CHRONIC BACK PAIN, BACK SX 2006 Hx Asthma: No Hx COPD: No Hx Diabetes: No Hx Cancer: No Hx Gastrointestinal Problems: No Hx Dialysis: No Hx Neurological Problems: Yes - HYDROCELE Hx Cerebrovascular Accident: No Hx Seizures: No Review of Systems All Other Systems: negative except mentioned in HPI Physical Exam Vital Signs Date Time Temp Pulse Resp B/P (MAP) Pulse Ox O2 Delivery O2 Flow Rate FiO2 12/17/18 12:19 98.4 66 20 122/69 96 Room Air Sp02 EP Interpretation: reviewed, normal General Appearance: no apparent distress, alert, GCS 15, non-toxic Head: normocephalic, atraumatic Eyes: bilateral eye normal inspection, bilateral eye PERRL ENT: hearing grossly normal, normal voice Neck: full range of motion Respiratory: lungs clear, normal breath sounds, speaking full sentences Cardiovascular #1: regular rate, rhythm, normal capillary refill Cardiovascular #2: 2+ radial (R) Musculoskeletal: back normal, gait/station normal, normal range of motion, other - TTP with deep palpation of the flexor tendons of the RMF. No significant swelling noted, no erythma. no increased warmth. Neurologic: alert, oriented x3, responsive, motor strength/tone normal, sensory intact, speech normal, grossly normal Psychiatric: judgement/insight normal Skin: normal color, no rash, warm/dry, well hydrated Medical Decision Making PA Attestation Dr. Hsu is my supervising Physician whom patient management has been discussed with. Diagnostic Impression: Primary Impression: Tendonitis Additional Impression: Hand pain, right ER Course 63-year-old male presents to the emergency department complaining of 9 out of 10 in severity pain to the right hand specifically along the right middle finger on the dorsal and volar aspect 2 days. Patient also reports subjective swelling he states that his pain is exacerbated upon attempts to make a fist denies trauma or fall he reports that began having his symptoms the day after beginning meloxicam. Patient thinks that this may be a side effect of his medication because he read that swelling is a possible side effect. Denies erythema, warmth, open wounds or rashes. He states that he is right-hand dominant. No relieving factors at this time. Pt. denies fevers, chills or swollen tender lymph nodes. Denies lesions/rashes elsewhere on the body. Denies new medications or body washes or creams. Denies swelling of the lips, tongue , throat or airway. Denies wheezing, or shortness of breath. Denies recent travel , recent illness or ill contacts. denies blisters, oral lesions, or sloughing of the skin Ddx considered but are not limited to cellulitis, tendonitis, Fracture, dislocation, contusion, Sprain/Strain/Spasm. Vital signs: are WNL, pt. is afebrile H&PE are most consistent with musculoskeletal injury will perform imaging to r/ o fractures/dislocations. ORDERS: - X-ray's not required at this time as there is no bony tenderness. ED INTERVENTIONS: - Tylenol PO - Finger splint applied to the RMF by security tech. Pt. remains neurovascularly intact. - Ismael wrap applied by security tech. Pt. remains neurovascularly intact. -I do not identify an emergent condition at this time. With current presentation , pt. is stable for close outpatient follow up and conservative treatment. D/ w pt. to return promptly to ED with worsening or new symptoms.- Pt. verbalizes' understanding and agreement with proposed treatment plan.proposed treatment plan. DISCHARGE: At this time pt. is stable for d/c to home. Will provide printed patient care instructions, and any necessary prescriptions. Care plan and follow up instructions have been discussed with the patient prior to discharge. Last Vital Signs Date Time Temp Pulse Resp B/P (MAP) Pulse Ox O2 Delivery O2 Flow Rate FiO2 12/17/18 12:44 98.3 78 22 125/65 98 Room Air Disposition: HOME, SELF-CARE Condition: Stable Scripts Acetaminophen* (TYLENOL EXTRA STRENGTH*) 500 Mg Tablet 500 MG ORAL Q6H, #20 TAB 0 Refills Prov: Sadaf Boyce 12/17/18 Patient Instructions: Medical Screening Exam Additional Instructions: Take medications as directed. Follow up with a Primary Care Provider in 3-5 days, even if your symptoms have resolved. --Please review list of primary care clinics, if you do not already have a primary care provider Return sooner to ED if new symptoms occur, or current symptoms become worse. - Please note that this Emergency Department Report was dictated using [employer] technology software, occasionally this can lead to erroneous entry secondary to interpretation by the dictation equipment. Sadaf Boyce Dec 17, 2018 13:03
[2018-12-17] MEDS ORDERED: TYLENOL EXTRA500 MG ORAL (13:04)
[2018-12-17 13:11] VITALS: BP 122/72
--- NOTE | 2018-12-17 13:11 | NUR ---
ED Nurse Note: EMT AT BEDSIDE FOR SPLINT.
--- NOTE | 2018-12-17 13:12 | NUR ---
ED Nurse Note: PT SITTING PEACEFULLY IN BED IN NAD. AOX4. PRESCRIPTION AND DISCHARGE PAPERWORK EXPLAINED TO PT. PT VERBALIZES UNDERSTANDING AND ALL QUESTIONS ANSWERED. PRESCRIPTION AND DISCHARGE PAPERWORK GIVEN TO PT AND ID WRISTBAND REMOVED. PT WALKED OUT OF ER WITH STEADY GAIT AND ALL BELONGINGS.
== END 2018-12-17 13:15 | disposition home or self-care (01) ==
LOC: EMR 12:36
DX: M77.9 Enthesopathy, unspecified (principal); M25.541 Pain in joints of right hand
CPT/HCPCS: 29130; 99283

== ENCOUNTER 2019-02-18 17:33 | Emergency (ER) | payer MEDICAID ==
[~2019-02-18] VITALS: Ht 175.3 cm; Wt 90.7 kg
[~2019-02-18 17:33] MED LIST changes: +TYLENOL EXTRA500 MG ORAL
[2019-02-18 17:36] VITALS: BP 139/83
[2019-02-18] MEDS ORDERED: ROBAXIN500 MG PO (17:40)
[2019-02-18] MEDS ORDERED: NORCO 10-325 T1 EACH ORAL (17:40)
[2019-02-18] MEDS ORDERED: SOMA250 MG PO (17:40)
--- NOTE | 2019-02-18 17:48 | Emergency Room Report ---
History of Present Illness General Chief Complaint: Abdominal Pain Source: Patient Present Illness HPI This patient states that over the past day he has developed left lower quadrant abdominal pain. He states that he did have several bowel movements without relief. He states the pain is exquisite. He denies fever or chills. He denies nausea or vomiting. He denies dysuria or hematuria. He has no other complaints. Allergies: Coded Allergies: No Known Allergies (Unverified , 11/03/15) Patient History Past Medical History: see triage record, HTN, other - chronic pain Social History: Denies: smoking, alcohol use, drug use Reviewed Nursing Documentation: PMH: Agreed; PSxH: Agreed Nursing Documentation-PMH Hx Hypertension: Yes - CHRONIC BACK PAIN, BACK SX 2005 Hx Asthma: No Hx COPD: No Hx Diabetes: No Hx Cancer: No Hx Gastrointestinal Problems: No Hx Dialysis: No Hx Neurological Problems: Yes - HYDROCELE Hx Cerebrovascular Accident: No Hx Seizures: No Review of Systems All Other Systems: negative except mentioned in HPI Physical Exam Vital Signs Date Time Temp Pulse Resp B/P (MAP) Pulse Ox O2 Delivery O2 Flow Rate FiO2 02/18/19 17:36 98.1 68 20 139/83 (101) 99 Room Air Sp02 EP Interpretation: reviewed, normal General Appearance: no apparent distress, alert, GCS 15, non-toxic Head: normocephalic, atraumatic Eyes: bilateral eye normal inspection, bilateral eye PERRL ENT: hearing grossly normal, normal pharynx, no angioedema, normal voice Neck: full range of motion, supple/symm/no masses Respiratory: chest non-tender, lungs clear, normal breath sounds, no respiratory distress, no retraction, no accessory muscle use, speaking full sentences Cardiovascular #1: regular rate, rhythm, no edema Gastrointestinal: normal bowel sounds, soft, non-distended, no guarding, no rebound, tenderness - TTP in the LLQ Rectal: deferred Musculoskeletal: back normal, gait/station normal, normal range of motion, non- tender Neurologic: alert, oriented x3, responsive, motor strength/tone normal, sensory intact, speech normal Psychiatric: judgement/insight normal, memory normal, mood/affect normal, no suicidal/homicidal ideation Skin: normal color, no rash, warm/dry, well hydrated Medical Decision Making Diagnostic Impression: Primary Impression: Diverticulitis ER Course This patient was found to have uncomplicated diverticulitis. Laboratory work- up was unremarkable. CT of the abdomen pelvis showed an area of diverticulitis at the juncture of the transverse and sigmoid colon. There was no evidence of complications such as abscess or perforation. Overall, the patient's evaluation is benign. I will place the patient on a course of antibiotics. The patient is given close return precautions and follow-up instructions. Laboratory Tests Test 02/18/19 17:51 02/18/19 18:30 White Blood Count 9.3 K/UL (4.8-10.8) Red Blood Count 4.91 M/UL (4.70-6.10) Hemoglobin 13.8 G/DL (14.2-18.0) L Hematocrit 41.2 % (42.0-52.0) L Mean Corpuscular Volume 84 FL (80-99) Mean Corpuscular Hemoglobin 28.1 PG (27.0-31.0) Mean Corpuscular Hemoglobin Concent 33.6 G/DL (32.0-36.0) Red Cell Distribution Width 12.3 % (11.6-14.8) Platelet Count 215 K/UL (150-450) Mean Platelet Volume 7.2 FL (6.5-10.1) Neutrophils (%) (Auto) 70.1 % (45.0-75.0) Lymphocytes (%) (Auto) 17.6 % (20.0-45.0) L Monocytes (%) (Auto) 10.4 % (1.0-10.0) H Eosinophils (%) (Auto) 1.0 % (0.0-3.0) Basophils (%) (Auto) 0.9 % (0.0-2.0) Sodium Level 144 MMOL/L (136-145) Potassium Level 3.3 MMOL/L (3.5-5.1) L Chloride Level 105 MMOL/L (98-107) Carbon Dioxide Level 30 MMOL/L (21-32) Anion Gap 9 mmol/L (5-15) Blood Urea Nitrogen 14 mg/dL (7-18) Creatinine 1.0 MG/DL (0.55-1.30) Estimate Glomerular Filtration Rate > 60 mL/min (>60) Glucose Level 57 MG/DL (74-106) L Calcium Level 9.0 MG/DL (8.5-10.1) Total Bilirubin 0.4 MG/DL (0.2-1.0) Aspartate Amino Transferase (AST) 17 U/L (15-37) Alanine Aminotransferase (ALT) 26 U/L (12-78) Alkaline Phosphatase 76 U/L (46-116) Total Protein 7.1 G/DL (6.4-8.2) Albumin 4.1 G/DL (3.4-5.0) Globulin 3.0 g/dL Albumin/Globulin Ratio 1.4 (1.0-2.7) Lipase 107 U/L (73-393) Urine Color Pale yellow Urine Appearance Clear Urine pH 8 (4.5-8.0) Urine Specific [place] 1.015 (1.005-1.035) Urine Protein Negative (NEGATIVE) Urine Glucose (UA) Negative (NEGATIVE) Urine Ketones Negative (NEGATIVE) Urine Blood Negative (NEGATIVE) Urine Nitrite Negative (NEGATIVE) Urine Bilirubin Negative (NEGATIVE) Urine Urobilinogen Normal MG/DL (0.0-1.0) Urine Leukocyte Esterase Negative (NEGATIVE) CT/MRI/US Diagnostic Results CT/MRI/US Diagnostic Results : Imaging Test Ordered: CT abd/pelvis Impression Un-complicated Diverticulitis. See official report in electronic medical record. Last Vital Signs Date Time Temp Pulse Resp B/P (MAP) Pulse Ox O2 Delivery O2 Flow Rate FiO2 02/18/19 17:36 98.1 68 20 139/83 (101) 99 Room Air Status: improved Disposition: HOME, SELF-CARE Condition: Improved Anupama Hsu DO Feb 18, 2019 17:48
[2019-02-18] MEDS ORDERED: Ketorolac 30mg Inj IV ONE (18:00)
[2019-02-18 18:25] LABS: BASOPHILS % (AUTO) 0.9 % (0.0-2.0); HEMATOCRIT 41.2 % (42.0-52.0); HEMOGLOBIN 13.8 G/DL (14.2-18.0); LYMPHOCYTES % (AUTO) 17.6 % (20.0-45.0); MEAN CORPUSCULAR VOLUME 84 FL (80-99); MONOCYTES % (AUTO) 10.4 % (1.0-10.0); NEUTROPHILS % (AUTO) 70.1 % (45.0-75.0); PLATELET COUNT 215 K/UL (150-450); RED BLOOD COUNT 4.91 M/UL (4.70-6.10); RED CELL DISTRIBUTION WIDTH 12.3 % (11.6-14.8); WHITE BLOOD COUNT 9.3 K/UL (4.8-10.8)
[2019-02-18 18:33] LABS: ANION GAP 9 mmol/L (5-15); BLOOD UREA NITROGEN 14 mg/dL (7-18); CARBON DIOXIDE 30 MMOL/L (21-32); CHLORIDE 105 MMOL/L (98-107); POTASSIUM 3.3 MMOL/L (3.5-5.1); SODIUM 144 MMOL/L (136-145)
[2019-02-18 18:37] LABS: ALANINE AMINOTRANSFERASE 26 U/L (12-78); ALBUMIN 4.1 G/DL (3.4-5.0); ALBUMIN/GLOBULIN RATIO 1.4 (1.0-2.7); ALKALINE PHOSPHATASE 76 U/L (46-116); ASPARTATE AMINO TRANSFERASE 17 U/L (15-37); BILIRUBIN,TOTAL 0.4 MG/DL (0.2-1.0)
[2019-02-18 18:44] LABS: APPEARANCE,URINE CLEAR; BILIRUBIN, URINE NEGATIVE (NEGATIVE); COLOR,URINE PALE YELLOW; GLUCOSE, URINE (UA) NEGATIVE (NEGATIVE); KETONES,URINE NEGATIVE (NEGATIVE); LEUKOCYTE ESTERASE ,URINE NEGATIVE (NEGATIVE); NITRITE,URINE NEGATIVE (NEGATIVE); PH,URINE 8 (4.5-8.0); PROTEIN,URINE NEGATIVE (NEGATIVE); UROBILINOGEN,URINE NORMAL MG/DL (0.0-1.0)
[2019-02-18] MEDS ORDERED: CIPROFLOXACIN500 M2 ORAL (19:15)
[2019-02-18] MEDS ORDERED: METRONIDAZOLE500 MG ORAL (19:15)
[2019-02-18] MEDS ORDERED: TRAMADOL HCL50 MG ORAL (19:15)
[2019-02-18 19:50] VITALS: BP 139/83
--- NOTE | 2019-02-19 08:46 | Diagnostic Imaging Report ---
Indication: Lower abdominal pain Technique: Spiral acquisitions obtained through the abdomen and pelvis. No oral contrast utilized, per emergency room physician request No IV contrast utilized, per referring physician request.. Multiplanar reconstructions were generated. Total dose length product 899.48 mGycm. CTDIvol(s) 17.49 mGy. Dose reduction achieved using automated exposure control Comparison: None Findings: There is colonic diverticulosis. There is increased attenuation of the pericolonic fat adjacent to the junction of the distal descending and proximal sigmoid colon. No extraluminal gas. No discrete fluid collection demonstrated. The appendix is normal. No small bowel distention. No free or loculated intraperitoneal gas or fluid is evident. The distal esophagus, stomach, duodenum are unremarkable. Lack of IV contrast limits assessment of solid organs. The liver, gallbladder, bile ducts, pancreas, spleen, adrenals kidneys are all unremarkable. No retroperitoneal or mesenteric mass or adenopathy. No pelvic mass or adenopathy. Included lung bases are clear. The bones are unremarkable except for mild degenerative changes of the lumbosacral junction. There is a 8.5 cm long axis dimension lipoma at the periphery of the right posterior thoracic/upper flank soft tissues just superficial to the musculature Impression: Evidence of uncomplicated acute diverticulitis of the distal descending/proximal sigmoid colon Right posterior thoracic/flank soft tissue lipoma incidentally noted This agrees with the preliminary interpretation provided overnight by [facility] teleradiology service. The CT scanner at [facility] is accredited by the [employer] and the scans are performed using protocols designed to limit radiation exposure to as low as reasonably achievable to attain images of sufficient resolution adequate for diagnostic evaluation.
== END 2019-02-18 19:50 | disposition home or self-care (01) ==
LOC: EMR 18:45
DX: K57.32 Diverticulitis of large intestine without perforation or abscess without bleeding (principal); I10 Essential (primary) hypertension; G89.29 Other chronic pain; M54.9 Dorsalgia, unspecified
CPT/HCPCS: 36415; 74176; 80053; 81003; 83690; 85025; 96361; 96374; 99284; J1885